=== PATIENT | male | born 1960 | race Caucasian/White ===

== ENCOUNTER 2017-01-19 15:39 | Emergency (ER) | payer OTHER ==
[~2017-01-19] VITALS: Ht 180.3 cm; Wt 136.4 kg
[~2017-01-19 15:39] MED LIST: CIME300T PO; VIST50CA PO; Z.0.NO CURRENT MEDS
[2017-01-19 15:46] VITALS: BP 156/100; PULSE 70; RESP 18; TEMP 98.8; O2SAT 95
[2017-01-19] MEDS ORDERED: LISINOPRIL 10 MG TAB PO ONE (16:00)
[2017-01-19] MEDS ORDERED: LISI40TA PO (16:00)
[2017-01-19] MEDS ORDERED: SIMV40TA PO (16:00)
[2017-01-19] MEDS ORDERED: ESCI20TA PO (16:00)
[2017-01-19] MEDS ORDERED: METF1000 PO (16:00)
--- NOTE | 2017-01-19 16:05 | PD ---
HPI Chief Complaint: Musculoskeletal Complaint Time Seen by Provider: 16:01 Travel History International Travel<30 days: No Contact w/Intl Traveler<30days: No Traveled to known affect area: No History of Present Illness HPI 56-year-old male presents to emergency Department with ongoing and worsening right wrist pain, swelling, since injury to the area from a twisting type injury while shoveling. Patient states it wasn't as painful right away but has gotten worse over the last 5 days. Patient states it seemed to worsen after lifting a box at [employer] 2 days ago. Patient denies numbness, but has decreased range of motion in the right wrist and thumb secondary to pain. Pain is an 8/10 at this time. He has no other injuries. Patient does have hypertension and did not take his medication this morning. Blood pressure is noted to be elevated in triage. Patient is allergic to Aleve, bee stings, codeine, prednisone, quinine, and sulfa. Patient can take ibuprofen without difficulty. PFSH Past Medical History Cardiovascular Problems: Yes (HTN) High Cholesterol: Yes Diabetes: Yes (TYPE 2 ) Gastrointestinal Disorders: Yes (FATTY LIVER, ELEVATED LIVER ENZYMES) Gout: Yes Past Surgical History Abdominal Surgery: Yes (RIGHT INGUINAL HERNIA REPAIR) Social History Alcohol Use: No Tobacco Use: No Substance Use: No Allergies-Medications (Allergen,Severity, Reaction): Coded Allergies: Prednisone (Verified Allergy, Severe, Anaphylaxis, 01/19/17) Aleve (Verified Allergy, Intermediate, RASH, 01/19/17) Bee Sting (Verified Allergy, Intermediate, SWELLING, 01/19/17) Quinine (Verified Allergy, Intermediate, Rash, 01/19/17) Sulfa (Verified Allergy, Intermediate, Rash, 01/19/17) Codeine (Verified Allergy, Mild, Nausea/Vomiting, 01/19/17) Reported Meds & Prescriptions Reported Meds & Active Scripts Active Reported Escitalopram (Escitalopram Oxalate) 20 Mg Tab 20 Mg PO DAILY Simvastatin 40 Mg Tab 40 Mg PO HS Lisinopril 40 Mg Tab 40 Mg PO DAILY Metformin (Metformin HCl) 1,000 Mg Tab 1,000 Mg PO BIDPC With meals Review of Systems Except as stated in HPI: all other systems reviewed are Neg General / Constitutional: No: Fever Eyes: No: Visual changes HENT: No: Headaches Cardiovascular: No: Chest Pain or Discomfort Respiratory: No: Shortness of Breath Gastrointestinal: No: Abdominal Pain Genitourinary: No: Dysuria Musculoskeletal: No: Pain Skin: No Rash Neurologic: No: Weakness Psychiatric: No: Depression Endocrine: No: Polydipsia Hematologic/Lymphatic: No: Easy Bruising Physical Exam Narrative GENERAL: Patient appears in mild distress. SKIN: Warm and dry. Normal color. Normal turgor. No signs of ecchymosis or erythema to the right wrist. HEAD: Atraumatic. Normocephalic. EYES: Pupils equal and round. No scleral icterus. No injection or drainage. ENT: No nasal bleeding or discharge. Mucous membranes pink and moist. Pharynx is normal. NECK: Trachea midline. No JVD. Supple nontender. CARDIOVASCULAR: Regular rate and rhythm. RESPIRATORY: No accessory muscle use. Clear to auscultation. Breath sounds equal bilaterally. MUSCULOSKELETAL: Extremities without clubbing, cyanosis, or edema. No obvious deformities. Right wrist appears slightly swollen compared to the left, with pain with palpation and motion at the snuffbox area and with extension of the right thumb. 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 Otherwise no significant findings. NEUROLOGICAL: Awake and alert. No obvious cranial nerve deficits. Motor grossly within normal limits. Five out of 5 muscle strength in the arms and legs. Normal speech. PSYCHIATRIC: Appropriate mood and affect; insight and judgment normal. Data Data Last Documented VS Vital Signs Date Time Temp Pulse Resp B/P Pulse Ox O2 Delivery O2 Flow Rate FiO2 01/19/17 15:46 98.8 70 18 156/100 95 Orders Wrist, Complete ([id number]) (01/19/17 16:00) Lisinopril (Prinivil) (01/19/17 16:15) Support Splint (01/19/17 16:32) Ketorolac Inj (Toradol Inj) (01/19/17 16:45) Fiberglass Thumb Spica Adult (01/19/17 ) MDM Medical Decision Making Medical Screen Exam Complete: Yes Emergency Medical Condition: Yes Differential Diagnosis Right wrist sprain. Fracture. Gouty arthritis. Narrative Course Patient is medically stable at time of exam. X-ray of the right wrist is ordered. Ice pack is applied by nursing staff. X-ray shows no obvious fracture or dislocation per radiologist. Patient is placed in a thumb spica splint on the right for comfort. Patient is given Toradol 60 mg IM. Patient was discharged home on ibuprofen 800 mg 3 times a day #30. One refill given. Patient follow-up with his primary care physician or return to emergency Department with worsening symptoms as needed. Diagnosis Primary Impression: Extensor tenosynovitis of right wrist Patient Instructions: General Instructions, Splint Care (ED), Upper Extremity Tenosynovitis (DC) Departure Forms: Work Release Enter return to work date: Jan 20, 2017 Special Instructions: Limited use of right hand secondary to tendinitis on the right thumb for the next 7 days. Additional Instructions: X-ray shows no obvious fracture or dislocation per radiologist. Patient is placed in a thumb spica splint on the right for comfort. Patient is given Toradol 60 mg IM. Patient was discharged home on ibuprofen 800 mg 3 times a day #30. One refill given. Patient follow-up with his primary care physician or return to emergency Department with worsening symptoms as needed. Med/Other Pt SpecificInfo: Prescription(s) given Scripts Acetaminophen (Acetaminophen Extra Strength)500 Mg Cap1,000 Mg PO Q6H PRN (PAIN SCALE 4 TO 10) #60 CAP Ref 1 Prov:Raciel Moore MD 01/19/17 Ibuprofen 800 Mg [id number] Mg PO Q8H PRN (Pain/Inflammation) #30 TAB Ref 1 Prov:Raciel Moore MD 01/19/17 Disposition: 01 DISCHARGE HOME Condition: Stable Jonathan Meehan Jan 19, 2017 16:05
[2017-01-19] MEDS ORDERED: LISINOPRIL 5 MG TAB PO ONE (16:15)
[2017-01-19] MEDS ORDERED: KETOROLAC TROMETHAMINE 60 MG/2 ML (IM) VIAL IM ONE (16:45)
[2017-01-19] MEDS ORDERED: IBUP800T23 PO (16:59)
[2017-01-19] MEDS ORDERED: EXTR500C PO (16:59)
--- NOTE | 2017-01-19 17:05 | RADHPO ---
EXAM DATE/TIME: 01/19/2017 16:09 [facility] COMPARISON: No previous studies available for comparison. INDICATIONS : Bent back wrist while shoveling MEDICAL HISTORY : Hypertension. Diabetes mellitus type II. SURGICAL HISTORY : None. ENCOUNTER: Initial ACUITY: 1 week PAIN SCORE: 10/10 LOCATION: Right wrist FINDINGS: Three view examination of the right wrist demonstrates no soft tissue swelling, dislocation, or fract ure. The carpal bones are in normal alignment. The joint spaces are maintained. Bony mineralizatio n is normal. CONCLUSION: Normal examination for a patient of this age. Evans Cruz MD on January 19, 2017 at 17:03 Board Certified Radiologist. This report was verified electronically.
== END 2017-01-19 17:10 | disposition home or self-care (01) ==
LOC: PHEFT 15:39
DX: M65.831 Other synovitis and tenosynovitis, right forearm (principal)
CPT/HCPCS: 73110; 96372; 99283; J1885; L3808